=== PATIENT | female | born 1940 | race Caucasian/White ===

== ENCOUNTER → 2017-06-19 | Outpatient (CLI) | payer MEDICARE, BC ==
[2014-05-11 13:36] VITALS: BMI 30.3
[~2017-06-19] MED LIST: ASPI-719 PO; BUME1TAB19 PO; CALC-547 PO; COD1CAPS39 PO; FLUT16SP19 NS; GLI2 PO; GLIMEPERIDE; GLUC-178 PO; HYDR-2970 PO; IPRA15SP7 NS; LISI-346 PO; LORA10TA2 PO; LYSI500T32 PO; MAGN250T25 PO; MET500 PO; OMEG-36 PO; PER PO; POTA10CA61 PO; POTASSIUM; PRE5 PO; [UNRECOGNIZED DRUG - CODE] PO; [UNRECOGNIZED DRUG - CODE] PO
--- NOTE | 2017-06-20 14:01 | RADIOLOGY IMAGING REPORT ---
FACILITY: [facility] PATIENT NAME: KACIE STRONG : [id number] MR: [id number] V: [id number] EXAM DATE: [id number] ORDERING PHYSICIAN: ONI SILVESTRE TECHNOLOGIST: Trina Hdez PROCEDURE:BILATERAL DIAGNOSTIC DIGITAL MAMMOGRAM WITH CAD ASSISTED INTERPRETATION & 3D TOMOSYNTHESIS COMPARISON:Prior mammograms 02/25/15, 01/12/14. INDICATIONS:Prior abnormal mammogram. FINDINGS: Moderately heterogeneous fibroglandular tissue is seen throughout the breasts. The parenchymal pattern has remained stable allowing for difference in mammographic technique & patient positioning. There is no evidence of malignant appearing mass, malignant appearing calcifications or other secondary sign of malignancy in either breast. DIAGNOSTIC CATEGORY 2--BENIGN FINDING. RECOMMENDATIONS: ROUTINE MAMMOGRAM AND CLINICAL EVALUATION. IMPRESSION: BIRADS 2: Benign finding No significant abnormality is seen. Dictated by: Marietta Romano M.D. on 06/19/2017 at 15:51 Transcribed by: JUAN on 06/20/2017 at 8:30 Approved by: Marietta Romano M.D. on 06/20/2017 at 14:00 [facility]
--- NOTE | 2017-06-20 14:11 | RADIOLOGY IMAGING REPORT ---
FACILITY: [facility] [place] PATIENT NAME: Susan Diaz : 1940 MR: [id number] V: [id number] EXAM DATE: ORDERING PHYSICIAN: ONI SILVESTRE TECHNOLOGIST: Location: [facility] Patient: Susan Diaz : 1940 Visit/Account:[id number] Date of Sevice: 06/19/2017 DEXA Scan Clinical history: Osteopenia. Comparison: DEXA scan from left 1110. LUMBAR SPINE: The bone mineral density (BMD) measured from L1-L4 correlates with a Z-score of 4.2 and a T-score of 3.2 which is Normal as defined by the World Health Organization. The corresponding risk of fracture in the lumbar spine is Not increased compared with a young adult reference population. This value chopra s increased by 14.4 % since the prior study. More than 5% change is considered significant. HIP: Bone mineral density (BMD) measured in the LEFT total hip region correlates with a Z-score 0.8 and a T-score of -0.6 which is normal as defined by the World Health Organization. The corresponding risk of fracture in the hip is 1-2 t imes increased compared to a young adult reference population. This value has decrease by 12 % since the prior study. More than 5% change is considered significant. T score left femoral neck -0.5 Bone mineral density (BMD) measured in the Femoral Neck region measures 0.966 g/cm?. IMPRESSION: 1. Lumbar spine: Normal. There has been 14.4% increase in the bone mineral density since the previo us exam. 2. Left Total Hip: Normal. There has been 12% decrease in the bone mineral density since the previo us exam. 3. Femoral Neck: Bone Mineral Density is 0.966 g/cm? The next DEXA scan of this patient should include the following sites: L1-L4 and the left hip. FRAX? WHO Fracture Risk Assessment Tool link: <http://www.shef.ac.uk/FRAX/tool.jsp?locationValue=9> PLEASE NOTE: 1) The World Health Organization defines low BMD as follows: T-score Normal > -1 Osteopenia < -1 and > -2.5 Osteoporosis < -2.5 without fractures Established osteoporosis < -2.5 with fractures 2) In general, you may wish to consider: Diagnosis Treatment Follow-up DEXA Normal BMD Prevention 2-3 years Osteopenia Prevention/therapy 1-2 years Osteoporosis Therapy Yearly 3) Fracture risk estimated from the T-score is more accurate for vertebral fractures (often spontane ous) than for hip fractures. Report Dictated By: Marietta Romano MD at 06/20/2017 1:58 PM Report E-Signed By: Marietta Romano MD at 06/20/2017 2:07 PM CASSANDRAN:YURIDIA
== END ==
LOC: MAMO 02:08
PROVIDERS: ATTEND Family Medicine
DX: Z13.820 Encounter for screening for osteoporosis (principal); R92.2 Inconclusive mammogram; Z78.0 Asymptomatic menopausal state
CPT/HCPCS: 77062; 77066; 77080